=== PATIENT | female | born 1985 | race Caucasian/White ===

== ENCOUNTER 2016-12-10 11:21 | Emergency (ER) | payer OTHER ==
[2016-12-10 11:33] VITALS: BP 104/60; PULSE 104; TEMP 98; BMI 24.7
--- NOTE | 2016-12-10 12:13 | PDOC ---
History of Present Illness - General Chief Complaint: Cold Symptoms Stated Complaint: COLD, CONGESTION Time Seen by Provider: 12/10/16 12:03 History Source: Patient Exam Limitations: No Limitations - History of Present Illness Initial Comments: CHIEF COMPLAINT: 31 y/o afebrile female with no significant PMH c/o flu like symptoms. HISTORY OF PRESENT ILLNESS: The patient states last night she became very hot and had chills. She also admits to body aches, nasal congestion, sinus pressure , runny nose. She took tylenol last night and she felt a little better. She denies earache, cough, n/v/d, CP, SOB, abd pain. She did have her tonsils removed in the past. She did not have the flu shot this year. Vital signs on arrival are notable for pulse of 104. REVIEW OF SYSTEMS: GENERAL/CONSTITUTIONAL: +fever and chills. +body aches. HEAD, EYES, EARS, NOSE AND THROAT: No change in vision. No ear pain or discharge. No sore throat. +nasal congestion. +runny nose. +sinus pressure. CARDIOVASCULAR: No chest pain or shortness of breath. RESPIRATORY: No cough, wheezing, or hemoptysis. GASTROINTESTINAL: No abd pain, nausea, vomiting, diarrhea. GENITOURINARY: No dysuria, frequency, or change in urination. MUSCULOSKELETAL: No joint or muscle swelling or pain. No neck or back pain. SKIN: No rash or easy bruising. NEUROLOGIC: No headache, vertigo, loss of consciousness, or loss of sensation. PHYSICAL EXAM: GENERAL: The patient is awake, alert, and fully oriented, in no acute distress. She is non toxic but ill appearing. HEAD: Normal with no signs of trauma. TTP of maxillary and frontal sinuses. ENT: Pupils equal, round and reactive to light, extraocular movements intact, sclera anicteric, conjunctiva clear. Neck supple. Mucous membranes moist. Posterior pharyngeal erythema. Nasal congestion with yellow rhinorrhea. LUNGS: Clear to auscultation bilaterally. Normal excursion. No respiratory distress or use of accessory muscles. CV: RRR, S1/S2, no MRG. Cap refill < 2 sec. ABDOMEN: Soft, non-distended, non-tender even to deep palpation, no hepatomegaly or splenomegaly, no masses. EXTREMITIES: Normal range of motion, no edema. NEUROLOGICAL: Normal speech, normal gait. CN II-XII grossly intact. PSYCH: Normal mood, normal affect. SKIN: Warm, dry, normal turgor, no rashes or lesions noted. 12/10/16 12:16 Past History - Past Medical History Allergies/Adverse Reactions: Allergies Allergy/AdvReac Type Severity Reaction Status Date / Time No Known Drug Allergies Allergy Verified 12/10/16 11:32 Home Medications: Ambulatory Orders NK [No Known Home Medication] 12/10/16 Anemia: No Asthma: No Cancer: No Cardiac Disorders: No CVA: No COPD: No CHF: No Dementia: No Diabetes: No GI Disorders: No Disorders: Yes (frequent UTI's) HTN: No Hypercholesterolemia: No Liver Disease: No Psychiatric Problems: Yes (ANXIETY.) Seizures: No Thyroid Disease: No Other medical history: SINUS INFECTIONS - Surgical History Abdominal Surgery: Yes (HERNIA REPAIR) Appendectomy: Yes - Reproductive History Cervical CA: No Dysfunctional Uterine Bleeding: No Ectopic : No Endometrial CA: No Polycystic Ovaries: No - Immunization History Immunization Up to Date: Yes - Psycho/Social/Smoking Cessation Hx Anxiety: No Suicidal Ideation: No Smoking Status: No Smoking History: Current some day smoker Years of Tobacco Use: 1 Have you smoked in the past 12 months: No Number of Cigarettes Smoked Daily: 4 Information on smoking cessation initiated: No Hx Alcohol Use: Yes (SOCIAL) Drug/Substance Use Hx: No Substance Use Type: None Hx Substance Use Treatment: No *Physical Exam - Vital Signs Last Vital Signs Temp Pulse Resp BP Pulse Ox 98.0 F 104 H 20 104/60 97 12/10/16 11:30 12/10/16 11:30 12/10/16 11:30 12/10/16 11:30 12/10/16 11:30 Medical Decision Making - Medical Decision Making A/P: 31 y/o female with flu like symptoms. Plan is as follows: 1. hcg 2. Influenza hcg - negative Influenza - negative Ordered IM toradol, PO sudafed and PO claritin. Will d/c the patient with dx of uri and head congestion. Suggested she take motrin and tylenol for body aches and fever, sudafed for sinus pressure and an antihistamine for runny nose. Pt instructed to drink plenty of fluids and get lots of rest. Suggested she f/u with her doctor next week and return to the ER with any worsening or concerning symptoms. The patient verbalizes understanding of all instructions, has no further questions and is awaiting discharge. *DC/Admit/Observation/Transfer Diagnosis at time of Disposition: Viral URI, Head cold - Discharge Dispostion Disposition: HOME Condition at time of disposition: Improved - Referrals Referrals: Myra Chadwick MD [Primary Care Provider] - 3 days - Patient Instructions Printed Discharge Instructions: DI for Viral Upper Respiratory Infection -- Adult, DI for Sinus Headache Additional Instructions: Discharge Instructions: -Take 600mg of Ibuprofen every 6 hours with food for body aches -Take 650mg of Tylenol every 4 hours for fever -Take over the counter Sudafed for sinus pressure -Take over the counter zyrtec/claritin/syed for runny nose -Get plenty of rest and drink lots of fluids -Follow up with your doctor next week -Return to the ER with any worsening or concerning symptoms
[2016-12-10] MEDS ORDERED: LORATADINE 10 MG TABLET PO ONE (13:24)
[2016-12-10] MEDS ORDERED: KETOROLAC TROMETHAMINE 60 MG/2 ML VIAL IM ONE (13:24)
[2016-12-10] MEDS ORDERED: PSEUDOEPHEDRINE HCL 60 MG TABLET PO ONE (13:25)
[2016-12-10] MEDS ORDERED: KETOROLAC TROMETHAMINE 60 MG/2 ML VIAL ONE (13:28)
[2016-12-10] MEDS ORDERED: LORATADINE 10 MG TABLET ONE (13:29)
[2016-12-10] MEDS ORDERED: PSEUDOEPHEDRINE HCL 60 MG TABLET ONE ×2 (13:30→13:31)
== END 2016-12-10 15:02 | disposition home or self-care (01) ==
LOC: JERFT 11:21
PROC: 3E0233Z Introduction of Anti-inflammatory into Muscle, Percutaneous Approach (ICD-10-PCS; principal; 2016-12-10)
DX: J06.9 Acute upper respiratory infection, unspecified (principal); B97.89 Other viral agents as the cause of diseases classified elsewhere
CPT/HCPCS: 84703; 87804; 96372; 99281-25

== ENCOUNTER 2016-12-26 11:20 | Day surgery (SDC) | payer OTHER ==
[2016-12-22 17:39] VITALS: BMI 25.0
[~2016-12-26 11:20] MED LIST: LEVOFLOXACIN 500 MG PREMIX BAG IVPB ONE
[2016-12-26] MEDS ORDERED: MIDAZOLAM HCL 2 MG/2 ML SINGLE DOSE VIAL ONE ×2 (14:16)
[2016-12-26] MEDS ORDERED: LEVOFLOXACIN 500 MG PREMIX BAG IVPB ONE (14:20)
--- NOTE | 2016-12-26 14:59 | OP ---
Operative Note - Note: Operative Date: 12/26/16 Pre-Operative Diagnosis: right renal stone Operation: right eswl Findings: 4mm right lower pole stone Post-Operative Diagnosis: Same as Pre-op Surgeon: Crow Riley Anesthesia: General Operative Report Dictated: Yes
[2016-12-26] MEDS ORDERED: IBUPROFEN 800 MG/8 ML IJ IVPB ONE (15:40)
[2016-12-26] MEDS ORDERED: ONDANSETRON 4 MG/2 ML VIAL IVPUSH PRN (15:42)
[2016-12-26] MEDS ORDERED: IBUPROFEN 800 MG/8 ML IJ IVPB PRN (15:42)
[2016-12-26 16:28] VITALS: TEMP 97.6
[2016-12-26 16:32] VITALS: PULSE 68
[2016-12-26 16:53] VITALS: BP 104/58
--- NOTE | 2016-12-26 20:56 | OP ---
DATE OF OPERATION: 12/26/2016 PREOPERATIVE DIAGNOSIS: Right renal stone. POSTOPERATIVE DIAGNOSIS: Right renal stone. PROCEDURE: Right extracorporeal shock-wave lithotripsy. ATTENDING: Keanu Koo MD ANESTHESIA: General. OPERATION: The patient was brought in the operating room, placed in supine position on the operating room table. Fluoroscopy and ultrasonography were performed and the 4-mm right lower pole stone was noted. General anesthesia was then administered as well as 500 mg of Levaquin. The patient then underwent extracorporeal shock-wave lithotripsy, 2500 impulses at 18 joules of power was administered to the stone. Excellent fragmentation was noted on real-time ultrasonography. No complications noted. The patient tolerated the procedure very well. The disposition of the patient was to recovery room. KEANU KOO M.D. [id number]
== END 2016-12-26 16:53 | disposition home or self-care (01) ==
LOC: JASU-SURG 11:20
PROVIDERS: ATTEND Urology
PROC: 0TF3XZZ Fragmentation in Right Kidney Pelvis, External Approach (ICD-10-PCS; principal; 2016-12-26 12:45)
DX: N20.0 Calculus of kidney (principal)
CPT/HCPCS: 84703; 94760

== ENCOUNTER → 2016-12-29 | Emergency (ER) | payer OTHER ==
[~2016-12-29] MED LIST changes: +CEPHALEXIN MONOHYDRATE 250 MG CAPSULE (FP) ONE; +IBUPROFEN 400 MG TABLET (FP) PO ONE; -LEVOFLOXACIN 500 MG PREMIX BAG IVPB ONE; +ONDANSETRON *ODT* 4 MG TABLET ONE; +OXYCODONE/APAP 5/325MG COMBO TABLET ONE; +PENICILLIN G BENZATHINE 2,400,000 UNIT/4 ML PFS ONE
[2016-12-29 08:43] VITALS: TEMP 98; BMI 25.0
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
[2016-12-29 13:17] VITALS: BP 115/74; PULSE 72
--- NOTE | 2017-01-02 13:54 | EKG ---
Test Reason : Blood Pressure : / mmHG Vent. Rate : 080 BPM Atrial Rate : 080 BPM P-R Int : 124 ms QRS Dur : 074 ms QT Int : 378 ms P-R-T Axes : 064 029 016 degrees QTc Int : 435 ms NORMAL SINUS RHYTHM T-WAVE INVERSION IN ANTERIOR LEADS POSSIBLE JUVENILE T WAVE PATTERN WHEN COMPARED WITH ECG OF 16-JAN-2016 10:10, NONSPECIFIC T WAVE ABNORMALITY NO LONGER EVIDENT IN LATERAL LEADS Confirmed by ALIZE CRAIG MD ([id number]) on 01/02/2017 1:54:30 PM Referred By: Confirmed By:ALIZE CRAIG MD
== END | disposition home or self-care (01) ==
LOC: JERFT 08:35 → JER 08:35
DX: S30.1XXA Contusion of abdominal wall, initial encounter (principal); S20.219A Contusion of unspecified front wall of thorax, initial encounter; S70.02XA Contusion of left hip, initial encounter; S70.01XA Contusion of right hip, initial encounter; S80.11XA Contusion of right lower leg, initial encounter; V43.52XA Car driver injured in collision with other type car in traffic accident, initial encounter; Y92.414 Local residential or business street as the place of occurrence of the external cause; W22.11XA Striking against or struck by driver side automobile airbag, initial encounter; Y93.89 Activity, other specified; Y99.8 Other external cause status
CPT/HCPCS: 71250-TC; 73130-TC-RT; 74176-TC; 84703; 93005; 93010; 99282-25

== ENCOUNTER 2017-02-10 08:25 | Emergency (ER) | payer OTHER ==
[2017-02-10 08:33] VITALS: BMI 24.7
--- NOTE | 2017-02-10 09:50 | PDOC ---
History of Present Illness - General History Source: Patient Exam Limitations: No Limitations - History of Present Illness Initial Comments: 02/10/17 10:23 The patient is a 31-year-old female with no significant past medical history, and presents to the emergency department with right abdominal pain, right flank pain, nausea, and vomiting. The patient reports that the abdominal pain is localized to the right lower quadrant, and radiates slightly to the left lower quadrant. She states she has had kidney stones in the past, and the last episode occurred in October 2016. She believes she may also currently have a UTI. The patient denies chest pain, shortness of breath, headache and dizziness. The patient denies fever, chills, diarrhea and constipation. The patient denies frequency, urgency and hematuria. LMP: last week Allergies: NKDA Past Surgical History: None reported Social History: Former smoker <Orly Osman - Last Filed: 02/10/17 10:23> <Prince Littlejohn - Last Filed: 02/10/17 15:11> - General Chief Complaint: Pain, Acute Stated Complaint: VOMITING, ABD PAIN Time Seen by Provider: 02/10/17 09:50 Past History <Orly Osman - Last Filed: 02/10/17 10:23> - Past Medical History Anemia: No Asthma: No Cancer: No Cardiac Disorders: No CVA: No COPD: No CHF: No Dementia: No Diabetes: No GI Disorders: No Disorders: Yes (frequent UTI's) HTN: No Hypercholesterolemia: No Kidney Stones: Yes Liver Disease: No Psychiatric Problems: Yes (ANXIETY.) Seizures: No Thyroid Disease: No - Surgical History Abdominal Surgery: Yes (HERNIA REPAIR-4YRS OLD) Appendectomy: Yes Orthopedic Surgery: Yes (KNEE ARTHROSCOPY-LEFT) - Reproductive History Cervical CA: No Dysfunctional Uterine Bleeding: No Ectopic : No Endometrial CA: No Polycystic Ovaries: No - Immunization History Immunization Up to Date: Yes - Psycho/Social/Smoking Cessation Hx Anxiety: No Suicidal Ideation: No Smoking Status: No Smoking History: Former smoker Years of Tobacco Use: 1 Have you smoked in the past 12 months: No Number of Cigarettes Smoked Daily: 2 Information on smoking cessation initiated: No 'Breaking Loose' booklet given: 12/26/16 Hx Alcohol Use: No Drug/Substance Use Hx: No Substance Use Type: None Hx Substance Use Treatment: No <Prince Littlejohn - Last Filed: 02/10/17 15:11> - Past Medical History Allergies/Adverse Reactions: Allergies Allergy/AdvReac Type Severity Reaction Status Date / Time No Known Drug Allergies Allergy Verified 02/10/17 08:33 Home Medications: Ambulatory Orders Cephalexin Monohydrate [Keflex -] 500 mg PO Q6H #40 capsule 02/10/17 Phenazopyridine HCl [Pyridium] 200 mg PO TID #9 tablet 02/10/17 Review of Systems - Review of Systems Able to Perform ROS?: Yes Comments:: 02/10/17 10:23 GENERAL/CONSTITUTIONAL: No fever or chills. No weakness. HEAD, EYES, EARS, NOSE AND THROAT: No change in vision. No ear pain or discharge. No sore throat. CARDIOVASCULAR: No chest pain or shortness of breath. RESPIRATORY: No cough, wheezing, or hemoptysis. GASTROINTESTINAL: (+) Abdominal pain. (+) Nausea. (+) vomiting. No diarrhea or constipation. GENITOURINARY: No frequency or change in urination. MUSCULOSKELETAL: (+) Right flank pain. No joint or muscle swelling or pain. No neck pain. SKIN: No rash NEUROLOGIC: No headache, vertigo, loss of consciousness, or change in strength/ sensation. ENDOCRINE: No increased thirst. No abnormal weight change. HEMATOLOGIC/LYMPHATIC: No anemia, easy bleeding, or history of blood clots. ALLERGIC/IMMUNOLOGIC: No hives or skin allergy. <Orly Osman - Last Filed: 02/10/17 10:23> *Physical Exam - Vital Signs Last Vital Signs Temp Pulse Resp BP Pulse Ox 98 F 89 18 97/56 98 02/10/17 08:28 02/10/17 08:28 02/10/17 08:28 02/10/17 08:28 02/10/17 08:28 - Physical Exam Comments: 02/10/17 10:24 GENERAL: Awake, alert, and fully oriented, in no acute distress HEAD: No signs of trauma EYES: PERRLA, EOMI, sclera anicteric, conjunctiva clear ENT: Auricles normal inspection, hearing grossly normal, nares patent, oropharynx clear without exudates. Moist mucosa NECK: Normal ROM, supple, no lymphadenopathy, JVD, or masses LUNGS: Breath sounds equal, clear to auscultation bilaterally. No wheezes, and no crackles HEART: Regular rate and rhythm, normal S1 and S2, no murmurs, rubs or gallops ABDOMEN: Soft, nontender, normoactive bowel sounds. No guarding, no rebound. No masses EXTREMITIES: Normal range of motion, no edema. No clubbing or cyanosis. No cords, erythema, or tenderness NEUROLOGICAL: Cranial nerves II through XII grossly intact. Normal speech, normal gait SKIN: Warm, Dry, normal turgor, no rashes or lesions noted. <Orly Osman - Last Filed: 02/10/17 10:23> - Vital Signs Last Vital Signs Temp Pulse Resp BP Pulse Ox 98 F 89 18 97/56 98 02/10/17 08:28 02/10/17 08:28 02/10/17 08:28 02/10/17 08:28 02/10/17 08:28 <Prince Littlejohn - Last Filed: 02/10/17 15:11> ED Treatment Course - LABORATORY CBC & Chemistry Diagram: 02/10/17 10:10 02/10/17 10:10 <Orly Osman - Last Filed: 02/10/17 10:23> - LABORATORY CBC & Chemistry Diagram: 02/10/17 10:10 02/10/17 10:10 <Prince Littlejohn - Last Filed: 02/10/17 15:11> *DC/Admit/Observation/Transfer - Attestations Scribe Attestion: 02/10/17 10:24 Documentation prepared by Orly Osman, acting as medical office representative for Prince Littlejohn MD. <Orly Osman - Last Filed: 02/10/17 10:23> - Discharge Dispostion Admit: No - Attestations Physician Attestion: 02/10/17 09:50 I, Dr. Prince Littlejohn, attest that this document has been prepared under my direction and personally reviewed by me in its entirety. I further attest, that it accurately reflects all work, treatment, procedures and medical decision -making performed by me. <Prince Littlejohn - Last Filed: 02/10/17 15:11> Diagnosis at time of Disposition: Urinary tract infection Qualifiers: Urinary tract infection type: site unspecified Hematuria presence: with hematuria Qualified Code(s): N39.0 - Urinary tract infection, site not specified ; R31.9 - Hematuria, unspecified - Discharge Dispostion Disposition: HOME Condition at time of disposition: Good - Prescriptions Prescriptions: Cephalexin Monohydrate [Keflex -] 500 mg PO Q6H #40 capsule Phenazopyridine HCl [Pyridium] 200 mg PO TID #9 tablet - Patient Instructions Printed Discharge Instructions: DI for Urinary Tract Infection (UTI) Additional Instructions: Rest- Plenty of fluids, Keflex four times a day, Pyridium 3 times a day for pain. Return to us if worse. Follow up with your regular doctor early next week. - Post Discharge Activity Work/School Note: Back to Work
[2017-02-10] MEDS ORDERED: OXYCODONE/APAP 5/325MG COMBO TABLET PO ONE ×2 (10:01→15:07)
[2017-02-10] MEDS ORDERED: ONDANSETRON *ODT* 4 MG TABLET SL ONE ×2 (10:01→15:07)
[2017-02-10 10:31] LABS: BASOPHIL 0.4 % (0-2.0); EOSINOPHIL 0.7 % (0-4.5); MCH 27.8 pg (25.7-33.7); MCHC 33.1 g/dl (32.0-36.0); MEAN PLT VOLUME 8.6 fl (7.5-11.1); NEUTROPHILS 78.3 % (42.8-82.8); PLATELET COUNT 338 K/MM3 (134-434); RDW 13.2 % (11.6-15.6); WHITE BLOOD COUNT 11.9 K/mm3 (4.0-10.0)
[2017-02-10 10:52] LABS: ALBUMIN 3.7 g/dl (3.4-5.0); ALK PHOS 67 U/L (45-117); ANION GAP 7 (8-16); BILIRUBIN,TOTAL 0.4 mg/dL (0.2-1.0); CALCIUM 8.7 mg/dL (8.5-10.1); CO2 28 mmol/L (21-32); CREATININE 0.6 mg/dL (0.55-1.02); GLUCOSE,RANDOM 103 mg/dL (74-106); SGOT/AST 11 U/L (15-37); SGPT/ALT 14 U/L (12-78)
[2017-02-10 11:27] LABS: URINE APPEARANCE CLEAR; URINE BILIRUBIN NEGATIVE (NEGATIVE); URINE COLOR YELLOW; URINE GLUCOSE (UA) NEGATIVE (NEGATIVE); URINE KETONE NEGATIVE (NEGATIVE); URINE NITRITE NEGATIVE (NEGATIVE); URINE PROTEIN NEGATIVE (NEGATIVE); URINE UROBILINOGEN NEGATIVE E.U./dl (0.2-1.0)
[2017-02-10 11:30] LABS: URINE BLOOD 2+ (NEGATIVE); URINE LEUK ESTERASE 2+ (NEGATIVE)
[2017-02-10 11:33] LABS: URINE BACTERIA RARE /hpf (NONE SEEN); URINE MUCUS FEW; URINE RBC 89 /hpf (0-3); URINE WBC 5 /hpf (3-5)
[2017-02-10] MEDS ORDERED: CEPHALEXIN MONOHYDRATE 500 MG CAPSULE (UD) PO ONE (15:07)
[2017-02-10 16:03] VITALS: BP 113/67; PULSE 64; TEMP 98.2
== END 2017-02-10 15:39 | disposition home or self-care (01) ==
LOC: JER 08:25
DX: N39.0 Urinary tract infection, site not specified (principal); R31.9 Hematuria, unspecified
CPT/HCPCS: 36415; 74176-TC; 80053; 81003; 81015; 84703; 85025; 99282-25

== ENCOUNTER 2021-03-10 00:23 | Emergency (ER) | payer OTHER ==
[2021-03-10 01:03] VITALS: TEMP 98; BMI 26.0
[2021-03-10] MEDS ORDERED: KETOROLAC TROMETHAMINE 15 MG/ML VIAL IVPUSH ONE (01:22)
[2021-03-10] MEDS ORDERED: LACTATED RINGERS SOLUTION 1000 ML INFUS.BAG IV ONE (01:22)
[2021-03-10] MEDS ORDERED: ONDANSETRON 4 MG/2 ML VIAL IVPUSH ONE (01:22)
[2021-03-10] MEDS ORDERED: ONDANSETRON 4 MG/2 ML VIAL ONE (01:33)
[2021-03-10] MEDS ORDERED: KETOROLAC TROMETHAMINE 15 MG/ML VIAL ONE (01:33)
[2021-03-10 01:49] LABS: BASO % 0.5 % (0-2.0); EOS % 1.1 % (0-4.5); HEMATOCRIT 43.6 % (32.4-45.2); HEMOGLOBIN 14.5 GM/dL (10.7-15.3); LYMPH % 24.3 % (8-40); MCHC 33.2 g/dl (32.0-36.0); MEAN CELL VOLUME 87.5 fl (80-96); MEAN PLT VOLUME 8.7 fl (7.5-11.1); MONO % 9.2 % (3.8-10.2); NEUT % 64.9 % (42.8-82.8); PLATELET COUNT 387 K/MM3 (134-434); RBC 4.99 M/mm3 (3.60-5.2); RDW 13.5 % (11.6-15.6); WHITE BLOOD COUNT 22.4 K/mm3 (4.0-10.0)
[2021-03-10 01:54] LABS: EPI CELLS 14 /uL (0-25.1); HYALINE CASTS 1 /uL (0-3.1); PH,URINE 6.5 (5.0-8.0); URINE APPEARANCE CLEAR; URINE BACTERIA 198 /uL (0-1359); URINE BILIRUBIN NEGATIVE (NEGATIVE); URINE COLOR YELLOW; URINE GLUCOSE (UA) NEGATIVE (NEGATIVE); URINE KETONE NEGATIVE (NEGATIVE); URINE LEUK ESTERASE TRACE (NEGATIVE); URINE NITRITE NEGATIVE (NEGATIVE); URINE PROTEIN NEGATIVE (NEGATIVE); URINE RBC 869 /uL (0-23.9); URINE UROBILINOGEN 0.2 mg/dL (0.2-1.0); URINE WBC 25 /uL (0-25.8)
[2021-03-10 02:42] LABS: ALBUMIN 3.5 g/dl (3.4-5.0); BLOOD UREA NITROGEN 12.1 mg/dL (7-18); CALCIUM 8.4 mg/dL (8.5-10.1)
[2021-03-10 02:45] LABS: CREATININE 0.8 mg/dL (0.55-1.3)
[2021-03-10 02:47] LABS: BILIRUBIN,TOTAL 0.2 mg/dL (0.2-1); TOT PROT 7.2 g/dl (6.4-8.2)
[2021-03-10 03:39] VITALS: BP 148/79; PULSE 85
[2021-03-10 04:07] LABS: ANISOCYTOSIS 1+; MACROCYTOSIS 0; PLATELET ESTIMATE NORMAL
== END 2021-03-10 05:43 | disposition home or self-care (01) ==
LOC: JER 00:23
PROC: 3E0333Z Introduction of Anti-inflammatory into Peripheral Vein, Percutaneous Approach (ICD-10-PCS; principal; 2021-03-10)
PROC: 3E033GC Introduction of Other Therapeutic Substance into Peripheral Vein, Percutaneous Approach (ICD-10-PCS; 2021-03-10)
DX: N20.0 Calculus of kidney (principal)
CPT/HCPCS: 36415; 74176-TC; 76830-TC; 80053; 81003; 84703; 85025; 87086; 87491; 87591; 87661; 99285-25

== ENCOUNTER 2021-04-12 04:35 | Day surgery (SDC) | payer OTHER ==
[2021-04-07 12:51] VITALS: BMI 25.0
[2021-04-12] MEDS ORDERED: PROPOFOL 20 ML ONE (15:47)
[2021-04-12] MEDS ORDERED: ACETAMINOPHEN 500 MG TABLET (FP) PO ONE (16:20)
[2021-04-12] MEDS ORDERED: oxyCODONE HCL 5 MG TABLET PO ONE (16:23)
[2021-04-12] MEDS ORDERED: oxyCODONE HCL 5 MG TABLET ONE (16:24)
[2021-04-12] MEDS ORDERED: ACETAMINOPHEN 325 MG TABLET (FP) ONE (16:32)
[2021-04-12 19:01] VITALS: BP 120/73; PULSE 74; TEMP 98
== END 2021-04-12 18:20 | disposition home or self-care (01) ==
LOC: JASU-SURG 04:35
PROVIDERS: ATTEND Urology
PROC: 0TF3XZZ Fragmentation in Right Kidney Pelvis, External Approach (ICD-10-PCS; principal; 2021-04-12 15:00)
DX: N20.0 Calculus of kidney (principal)
CPT/HCPCS: 81025

== ENCOUNTER 2024-01-29 04:17 | Day surgery (SDC) | payer OTHER ==
[2024-01-24 12:16] VITALS: BMI 26.5
[2024-01-29] MEDS ORDERED: MIDAZOLAM HCL 2 MG/2 ML SINGLE DOSE VIAL ONE (11:20)
[2024-01-29] MEDS ORDERED: PROPOFOL 20 ML ONE (11:44)
[2024-01-29] MEDS ORDERED: KETOROLAC TROMETHAMINE 30 MG/1 ML VIAL ONE (11:46)
[2024-01-29] MEDS ORDERED: ACETAMINOPHEN 500 MG TABLET (FP) ONE (12:41)
[2024-01-29] MEDS: ACETAMINOPHEN 500 MG TABLET (FP) PO ONE (12:42)
[2024-01-29 14:44] VITALS: RESP 18
[2024-01-29 14:55] VITALS: BP 104/66; PULSE 67; TEMP 97.8
== END 2024-01-29 13:34 | disposition home or self-care (01) ==
LOC: JASU-SURG 04:17
PROVIDERS: ATTEND Urology
PROC: 0TF3XZZ Fragmentation in Right Kidney Pelvis, External Approach (ICD-10-PCS; principal; 2024-01-29 11:00)
DX: N20.0 Calculus of kidney (principal)
CPT/HCPCS: 81025

== ENCOUNTER 2024-04-08 04:28 | Day surgery (SDC) | payer OTHER ==
[2024-04-08 10:31] VITALS: BMI 26.5
[2024-04-08] MEDS ORDERED: MIDAZOLAM HCL 2 MG/2 ML SINGLE DOSE VIAL ONE (13:05)
[2024-04-08] MEDS ORDERED: FENTANYL CITRATE/PF 50 MCG/ML VIAL ONE ×2 (13:05→13:16)
[2024-04-08] MEDS ORDERED: ACETAMINOPHEN INJECTION 100 ML IVPB ONE (13:16)
[2024-04-08] MEDS: ACETAMINOPHEN 1000 MG/100 ML BAG IVPB ONE (13:20)
[2024-04-08 14:07] VITALS: RESP 18
[2024-04-08 16:11] VITALS: PULSE 68
[2024-04-08 16:16] VITALS: BP 126/79; TEMP 98
== END 2024-04-08 14:47 | disposition home or self-care (01) ==
LOC: JASU-SURG 04:28
PROVIDERS: ATTEND Urology
PROC: 0TF4XZZ Fragmentation in Left Kidney Pelvis, External Approach (ICD-10-PCS; principal; 2024-04-08 12:00)
DX: N20.0 Calculus of kidney (principal)
CPT/HCPCS: 81025; J0131

== ENCOUNTER 2025-04-14 07:00 | Day surgery (SDC) | payer OTHER ==
[2025-04-10 16:05] VITALS: BMI 25.3
[2025-04-14] MEDS ORDERED: ACETAMINOPHEN 325 MG TABLET (FP) PO PRN (10:38)
[2025-04-14] MEDS ORDERED: IBUPROFEN 400 MG TABLET (FP) PO PRN (10:38)
[2025-04-14] MEDS ORDERED: MIDAZOLAM HCL 2 MG/2 ML SINGLE DOSE VIAL ONE (11:08)
[2025-04-14] MEDS ORDERED: LIDOCAINE HCL/PF 2% SDV 5ML VIAL ONE (11:08)
[2025-04-14] MEDS ORDERED: PROPOFOL 20 ML ONE (11:08)
[2025-04-14] MEDS ORDERED: KETOROLAC TROMETHAMINE 30 MG/1 ML VIAL ONE (11:56)
[2025-04-14] MEDS ORDERED: DEXAMETHASONE SOD PHOSPHATE 4 MG/1 ML VIAL ONE (11:56)
[2025-04-14] MEDS ORDERED: ONDANSETRON 4 MG/2 ML VIAL ONE (11:56)
[2025-04-14] MEDS ORDERED: ONDANSETRON 4 MG/2 ML VIAL IVPUSH PRN (12:53)
[2025-04-14] MEDS: LACTATED RINGERS SOLUTION 1,000 ML IV SCH (13:09)
[2025-04-14] MEDS: ACETAMINOPHEN 1000 MG/100 ML BAG IVPB ONE (13:10)
[2025-04-14 14:05] VITALS: RESP 18
[2025-04-14] MEDS: oxyCODONE HCL 5 MG TABLET PO ONE (14:23)
[2025-04-14 15:22] VITALS: BP 120/62; PULSE 68; TEMP 97.8
== END 2025-04-14 15:50 | disposition home or self-care (01) ==
LOC: JASU-SURG 07:00
PROVIDERS: ATTEND Obstetrics & Gynecology
PROC: 0UN98ZZ Release Uterus, Via Natural or Artificial Opening Endoscopic (ICD-10-PCS; principal; 2025-04-14 11:30)
DX: N85.6 Intrauterine synechiae (principal); N84.1 Polyp of cervix uteri
CPT/HCPCS: 81025; 88305-TC; 94760; J0131